=== PATIENT | female | born 1995 | race Caucasian/White ===

== ENCOUNTER 2019-02-20 00:14 | Emergency (ER) | payer OTHER ==
[~2019-02-20] VITALS: Ht 167.6 cm; Wt 89.1 kg
[~2019-02-20 00:14] MED LIST: COL100 PO; IBUPROFEN800 MG PO; LAC PO; MAC100 PO; ZES5 PO
[2019-02-20 00:33] VITALS: Ht 167.6 cm; Wt 89.1 kg
[2019-02-20 01:17] LABS: BASOPHIL % 0.1 % (0-2); PLATELET COUNT 348 x10^3mcL (130-400)
[2019-02-20 01:19] LABS: RED CELL DISTRIBUTION WIDTH 14.8 % (11.5-14.5)
[2019-02-20 01:24] LABS: CALCIUM 8.7 mg/dL (8.5-10.1); CARBON DIOXIDE 26.4 mmol/L (21-32); CHLORIDE SERUM 106 mmol/L (98-107); CREATININE SERUM 0.6 mg/dL (0.6-1.0); GFR1 > 60 mL/min; GLUCOSE SERUM 112 mg/dL (74-106); POTASSIUM SERUM 3.9 mmol/L (3.5-5.1); SODIUM SERUM 142 mmol/L (136-145)
[2019-02-20 01:29] LABS: ALBUMIN 3.5 g/dL (3.4-5.0); ALKALINE PHOSPHATASE 99 U/L (46-116); ALT/SGPT 102 U/L (14-59); AST/SGOT 141 U/L (15-37); BILIRUBIN TOTAL 0.46 mg/dL (0.20-1.00); LIPASE 173 IU/L (73-393); TOTAL PROTEIN, SERUM 7.2 g/dL (6.4-8.2)
[2019-02-20 02:09] LABS: microscopic required? YES; urine erythrocyte 2+ (NEGATIVE)
[2019-02-20 03:07] VITALS: BP 110/61
== END 2019-02-20 03:07 | disposition home or self-care (01) ==
LOC: ED 00:14
PROVIDERS: Emergency Medicine
DX: K29.70 Gastritis, unspecified, without bleeding (principal); N12 Tubulo-interstitial nephritis, not specified as acute or chronic; I10 Essential (primary) hypertension; Z90.89 Acquired absence of other organs
CPT/HCPCS: J0696; J1885; J2405; J3490; J7060; Q0092

== ENCOUNTER 2019-05-14 18:40 | Emergency (ER) | payer OTHER ==
[~2019-05-14] VITALS: Ht 167.6 cm; Wt 88.9 kg
[2019-05-14 19:28] VITALS: Ht 167.6 cm; Wt 88.9 kg
[2019-05-14 21:16] VITALS: BP 148/91
== END 2019-05-14 21:16 | disposition home or self-care (01) ==
LOC: ED 18:40
DX: G89.29 Other chronic pain (principal); M54.6 Pain in thoracic spine; I10 Essential (primary) hypertension
CPT/HCPCS: J1885; Q0162

== ENCOUNTER 2019-06-08 20:55 | Emergency (ER) | payer OTHER ==
[~2019-06-08] VITALS: Ht 167.6 cm; Wt 90.3 kg
[2019-06-08 21:10] VITALS: Ht 167.6 cm; Wt 90.3 kg
[2019-06-08 23:12] VITALS: BP 142/83
== END 2019-06-08 23:12 | disposition home or self-care (01) ==
LOC: ED 20:55
DX: M54.6 Pain in thoracic spine (principal); G89.29 Other chronic pain; I10 Essential (primary) hypertension

== ENCOUNTER 2020-08-28 09:30 | Emergency (ER) | payer OTHER ==
[~2020-08-28] VITALS: Ht 167.6 cm; Wt 103.0 kg
[2020-08-28 09:37] VITALS: Ht 167.6 cm; Wt 103.0 kg
[2020-08-28 10:41] LABS: BASOPHIL % 0.7 % (0.2-1.3)
[2020-08-28 10:52] LABS: CALCIUM 9.6 mg/dL (8.5-10.1); CARBON DIOXIDE 27.7 mmol/L (21-32); CHLORIDE SERUM 103 mmol/L (98-107); CREATININE SERUM 0.6 mg/dL (0.6-1.0); GFR1 > 60 mL/min; GLUCOSE SERUM 133 mg/dL (74-106); POTASSIUM SERUM 3.6 mmol/L (3.5-5.1); SODIUM SERUM 140 mmol/L (136-145)
[2020-08-28 10:53] LABS: PLATELET COUNT 446 x10^3mcL (179-408); RED CELL DISTRIBUTION WIDTH 15.1 % (12.3-17.7)
[2020-08-28 10:56] LABS: ALBUMIN 4.2 g/dL (3.4-5.0); ALKALINE PHOSPHATASE 97 U/L (46-116); ALT/SGPT 45 U/L (14-59); AST/SGOT 15 U/L (15-37); BILIRUBIN TOTAL 0.4 mg/dL (0.20-1.00); CHOLESTEROL 161 mg/dL (<200); CHOLESTEROL/HDL RATIO 3.4; HDL CHOLESTEROL 48 mg/dL (40-60); TRIGLYCERIDES 69 mg/dL (<150)
[2020-08-28 11:43] LABS: microscopic required? YES; urine erythrocyte TRACE (NEGATIVE)
[2020-08-28 12:07] VITALS: BP 125/64
== END 2020-08-28 12:07 | disposition home or self-care (01) ==
LOC: ED 09:30
PROVIDERS: Specialist
DX: K80.50 Calculus of bile duct without cholangitis or cholecystitis without obstruction (principal); I10 Essential (primary) hypertension
CPT/HCPCS: J1885; J2405

== ENCOUNTER 2020-09-03 09:42 | Emergency (ER) | payer OTHER ==
[~2020-09-03] VITALS: Ht 167.6 cm; Wt 102.5 kg
[2020-09-03 09:58] VITALS: Ht 167.6 cm; Wt 102.5 kg
[2020-09-03 10:50] LABS: CALCIUM 8.4 mg/dL (8.5-10.1); CARBON DIOXIDE 26.3 mmol/L (21-32); CHLORIDE SERUM 100 mmol/L (98-107); CREATININE SERUM 0.6 mg/dL (0.6-1.0); GFR1 > 60 mL/min; GLUCOSE SERUM 112 mg/dL (74-106); POTASSIUM SERUM 4.1 mmol/L (3.5-5.1); SODIUM SERUM 138 mmol/L (136-145)
[2020-09-03 11:06] LABS: ALBUMIN 4.3 g/dL (3.4-5.0); ALKALINE PHOSPHATASE 95 U/L (46-116); ALT/SGPT 49 U/L (14-59); AST/SGOT 22 U/L (15-37); BILIRUBIN TOTAL 0.5 mg/dL (0.20-1.00); LIPASE 136 IU/L (73-393)
[2020-09-03 11:07] LABS: TOTAL PROTEIN, SERUM 8.5 g/dL (6.4-8.2)
[2020-09-03 11:21] LABS: PLATELET COUNT 465 x10^3mcL (179-408); RED CELL DISTRIBUTION WIDTH 15.7 % (12.3-17.7)
[2020-09-03 11:23] LABS: rbc morphology (normal/abnorm) NORMAL (NORMAL)
[2020-09-03 14:29] VITALS: BP 148/69
== END 2020-09-03 14:29 | disposition home or self-care (01) ==
LOC: ED 09:42
PROVIDERS: Emergency Medicine
DX: K80.20 Calculus of gallbladder without cholecystitis without obstruction (principal); I10 Essential (primary) hypertension; Z90.89 Acquired absence of other organs
CPT/HCPCS: J1885; J2405

== ENCOUNTER 2020-09-29 12:11 | Emergency (ER) | payer MEDICAID ==
[~2020-09-29] VITALS: Ht 167.6 cm; Wt 97.5 kg
[2020-09-29 12:49] VITALS: Ht 167.6 cm; Wt 97.5 kg
[2020-09-29 14:44] LABS: BASOPHIL % 0.8 % (0.2-1.3); PLATELET COUNT 377 x10^3mcL (179-408)
[2020-09-29 14:47] LABS: CALCIUM 8.9 mg/dL (8.5-10.1); CARBON DIOXIDE 27.9 mmol/L (21-32); CHLORIDE SERUM 103 mmol/L (98-107); CREATININE SERUM 0.6 mg/dL (0.6-1.0); GFR1 > 60 mL/min; GLUCOSE SERUM 100 mg/dL (74-106); POTASSIUM SERUM 4.4 mmol/L (3.5-5.1); SODIUM SERUM 139 mmol/L (136-145)
[2020-09-29 14:51] LABS: ALBUMIN 3.6 g/dL (3.4-5.0); ALKALINE PHOSPHATASE 85 U/L (46-116); ALT/SGPT 62 U/L (14-59); AST/SGOT 17 U/L (15-37); BILIRUBIN TOTAL 0.3 mg/dL (0.20-1.00); LIPASE 157 IU/L (73-393); TOTAL PROTEIN, SERUM 7.1 g/dL (6.4-8.2)
[2020-09-29 14:52] LABS: RED CELL DISTRIBUTION WIDTH 15.3 % (12.3-17.7)
[2020-09-29] MEDS ORDERED: SODI PO (16:13)
[2020-09-29] MEDS ORDERED: ZOF4 PO (16:13)
[2020-09-29] MEDS ORDERED: HYDROCODONE BIT1 T51 PO (16:13)
[2020-09-29] MEDS ORDERED: ZOFRAN4 M3 PO (16:13)
[2020-09-29] MEDS ORDERED: OMEPRAZOLE PO (16:13)
[2020-09-29 16:43] VITALS: BP 126/71
== END 2020-09-29 16:43 | disposition home or self-care (01) ==
LOC: ED 12:11
PROVIDERS: Emergency Medicine
DX: K80.20 Calculus of gallbladder without cholecystitis without obstruction (principal); I10 Essential (primary) hypertension; Z98.890 Other specified postprocedural states